=== PATIENT | female | born 1995 | race Hispanic/Latino ===

== ENCOUNTER 2018-05-18 05:17 | Inpatient (IN) | payer OTHER, SELFPAY ==
[2018-05-18 05:58] LABS: Urine Bacteria LOADED /HPF (<20); Urine Culture Reflex Order REFLEXED; Urine Mucus LIGHT /HPF (NONE SEEN); Urine RBC NONE SEEN /HPF (NONE SEEN)
[2018-05-18 05:59] LABS: Urine Blood 3+ (NEG); Urine Glucose NEGATIVE (NEG); Urine Protein NEGATIVE (NEG); Urine Specific Gravity 1.025 (1.005-1.030); Urine pH 5.5 (5.0-7.0)
[2018-05-18 06:04] LABS: Absolute Monocytes 1.2 K/uL (0.1-1.3); Absolute Neutrophil 11.6 K/uL (1.8-8.0); Basophils % 0.2 % (0-1.3); Eosinophils % 0.2 % (0-4.4); Hematocrit 38.6 % (36.0-45.0); Lymphocytes % 13.4 % (15.3-44.8); MCH 30.6 pg (27.0-35.0); MCV 88.9 fL (80-100); MPV 9.6 fL (7.6-11.3); RBC Red Blood Cell Count 4.34 M/uL (3.86-4.86)
[2018-05-18] MEDS ORDERED: NA CHLORIDE 0.9% 1,000 ML ONE ×2 (06:10→07:18)
[2018-05-18] MEDS ORDERED: FENTANYL CITR 100 MCG/2 ML ONE (06:10)
[2018-05-18] MEDS ORDERED: ONDANSETRON 4 MG/2 ML VIAL ONE (06:11)
[2018-05-18 06:14] LABS: ALT/SGPT 27 U/L (12-78); AST/SGOT 18 U/L (15-37); Albumin 3.9 g/dL (3.4-5.0); Alkaline Phosphatase 102 U/L (45-117); BUN Blood Urea Nitrogen 10 mg/dL (7-18); Bicarbonate 25 mmol/L (21-32); Bilirubin Direct 0.1 mg/dL (0-0.2); Bilirubin Total 0.4 mg/dL (0.2-1.0); Glucose Level 120 mg/dL (74-106); Lipase 132 U/L (73-393); Potassium 3.8 mmol/L (3.5-5.1); Protein, Total 7.6 g/dL (6.4-8.2); Sodium Level 136 mmol/L (136-145)
[2018-05-18] MEDS ORDERED: METRONIDAZOLE 500mg IVPB 500 MG/100 ML BAG IV ONE (07:18)
[2018-05-18] MEDS ORDERED: CEFTRIAXONE/SWI 1gm 1 GM/10 ML SYR ONE (07:18)
--- NOTE | 2018-05-18 11:09 | ER ---
Nurse's Notes [facility] Name: Geovanna Yuen Age: 22 yrs Sex: Female : 1995 Arrival Date: 05/18/2018 Time: 05:20 Bed 6 Private MD: Diagnosis: Cecal mass Presentation: 05/18 05:27 Presenting complaint: Patient states: ABDOMINAL PAIN MOVING FROM EPIGASTRIC TO RLQ bp SINCE Y/D. Transition of care: patient was not received from another setting of care. Onset of symptoms was May 17, 2018. Risk Assessment: Do you want to hurt yourself or someone else? Patient reports no desire to harm self or others. Initial Sepsis Screen: Does the patient meet any 2 criteria? HR > 90 bpm. Does the patient have a suspected source of infection? No. Patient's initial sepsis screen is negative. Care prior to arrival: None. 05:27 Method Of Arrival: Ambulatory bp 05:27 Acuity: ROBERT 3 bp Triage Assessment: 05:28 General: Appears in no apparent distress. uncomfortable, slender, Behavior is bp cooperative, appropriate for age, anxious. Pain: Complains of pain in right lower quadrant. EENT: No deficits noted. Neuro: Level of Consciousness is awake, alert, obeys commands, Oriented to person, place, time, situation, Appropriate for age. Cardiovascular: Rhythm is sinus tachycardia. Respiratory: Airway is patent Respiratory effort is even, unlabored, Respiratory pattern is regular, symmetrical. GI: Reports lower abdominal pain, diarrhea, Patient currently denies vomiting. : No signs and/or symptoms were reported regarding the genitourinary system. Derm: No deficits noted. Musculoskeletal: Circulation, motion, and sensation intact. Range of motion: intact in all extremities. 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 - Social history:: Smoking status: Patient/guardian denies using tobacco. - Ebola Screening: : Patient negative for fever greater than or equal to 101.5 degrees Fahrenheit, and additional compatible Ebola Virus Disease symptoms Patient denies exposure to infectious person Patient denies travel to an Ebola-affected area in the 21 days before illness onset No symptoms or risks identified at this time. - Family history:: not pertinent. Screenin:48 Abuse screen: Denies threats or abuse. Denies injuries from another. Nutritional bp screening: No deficits noted. Tuberculosis screening: No symptoms or risk factors identified. Fall Risk None identified. Assessment: 05:48 General: Appears in no apparent distress. uncomfortable, Behavior is calm, cooperative, bp appropriate for age. Pain: Complains of pain in right lower quadrant. Neuro: Level of Consciousness is awake, alert, obeys commands, Oriented to person, place, time, situation, Appropriate for age. Cardiovascular: No deficits noted. Respiratory: Airway is patent Respiratory effort is even, unlabored, Respiratory pattern is regular, symmetrical. GI: Reports lower abdominal pain, diarrhea. : No signs and/or symptoms were reported regarding the genitourinary system. EENT: No deficits noted. Derm: No deficits noted. Musculoskeletal: Circulation, motion, and sensation intact. Range of motion: intact in all extremities. 06:01 Reassessment: PO CONTRAST COMPLETE, CT NOTIFIED. bp 07:02 Reassessment: Patient and/or family updated on plan of care and expected duration. Pain aa5 level reassessed. Patient states feeling better. Awaiting CT at this time. Pt notified of wait time for CT scan to be completed, pt verbalized understanding. . General: Appears comfortable, Behavior is calm, cooperative. Pain: Complains of pain in epigastric area Pain radiates to right lower quadrant Pain currently is 4 out of 10 on a pain scale. Quality of pain is described as dull, Pain began Is continuous. Neuro: Level of Consciousness is awake, alert, obeys commands, Oriented to person, place, time, situation. Cardiovascular: Heart tones S1 S2 present Rhythm is regular. Respiratory: Airway is patent Respiratory effort is even, unlabored, Respiratory pattern is regular, symmetrical, Breath sounds are clear bilaterally. GI: Abdomen is round non-distended, Bowel sounds present X 4 quads. Abd is soft and non tender X 4 quads. Reports diarrhea, Patient currently denies nausea, vomiting. : Reports urinary frequency, Denies burning with urination. EENT: No signs and/or symptoms were reported regarding the EENT system. Derm: Skin is pink, warm \T\ dry. Musculoskeletal: Range of motion: intact in all extremities. 07:20 Reassessment: Patient and/or family updated on plan of care and expected duration. Pain aa5 level reassessed. Patient is alert, oriented x 3, equal unlabored respirations, skin warm/dry/pink. Pain: Pain currently is 4 out of 10 on a pain scale. 10:36 Reassessment: Patient is alert, oriented x 3, equal unlabored respirations, skin aa5 warm/dry/pink. 10:36 Reassessment: See pt's chart for paper charting before 1036. . aa5 Vital Signs: 05:28 BP 108 / 70; Pulse 105; Resp 16; Temp 98.8; Pulse Ox 100% ; Weight 69.85 kg; Height 5 bp ft. 4 in. (162.56 cm); 06:30 BP 101 / 61; Pulse 68; Resp 14; Pulse Ox 100% ; bp 10:36 BP 100 / 60; Pulse 66; Resp 16 S; Pulse Ox 99% on R/A; Pain 3/10; aa5 05:28 Body Mass Index 26.43 (69.85 kg, 162.56 cm) bp ED Course: 05:20 Patient arrived in ED. ds1 05:20 Abe Dutton, RN is Primary Nurse. bp 05:27 Triage completed. bp 05:28 Ry Rouse MD is Attending Physician. aniya 05:28 Arm band placed on. bp 05:48 Patient has correct armband on for positive identification. Bed in low position. Call bp light in reach. Side rails up X2. Adult w/ patient. 05:48 Inserted saline lock: 20 gauge in right antecubital area, using aseptic technique. bp Blood collected. 05:56 Oral contrast given. eh 07:14 [facility] Schwab [facility]. jr8 10:35 Brooks Tavares MD is Hospitalizing Provider. aa5 10:36 No provider procedures requiring assistance completed. Patient admitted, IV remains in aa5 place. Administered Medications: 06:11 Drug: fentaNYL (PF) 25 mcg Route: IVP; Site: right antecubital; bp 06:31 Follow up: Response: No adverse reaction; Pain is decreased cc3 06:11 Drug: Zofran 4 mg Route: IVP; Site: right antecubital; bp 06:31 Follow up: Response: No adverse reaction; Nausea is decreased cc3 06:11 Drug: NS 0.9% 1000 ml Route: IV; Rate: 1 bolus; Site: right antecubital; bp 06:56 Follow up: IV Status: Completed infusion; IV Intake: 1000ml bp 07:15 Drug: Rocephin - (cefTRIAXone) 1 grams {Note: administered IVP over 2 mins per pharmacy aa5 protocol at this time. .} Route: IVPB; Infused Over: 30 mins; Site: right antecubital; 07:18 Follow up: Response: No adverse reaction aa5 07:18 Drug: Flagyl 500 mg Volume: 100 ml; Route: IVPB; Rate: 200 ml/hr; Infused Over: 30 aa5 mins; Site: right antecubital; 07:51 Follow up: Response: No adverse reaction; IV Status: Completed infusion aa5 07:18 Drug: NS 0.9% 1000 ml Route: IV; Rate: 125 ml/hr; Site: right antecubital; aa5 10:36 Follow up: IV Status: Infusion continued upon admission aa5 Intake: 06:56 IV: 1000ml; Total: 1000ml. bp Outcome: 10:36 Decision to Hospitalize by Provider. aa5 10:42 Admitted to Med/surg accompanied by tech, family with patient, via stretcher, room 405, aa5 with chart, Report called to MARIO Thomas 10:42 Condition: stable 10:42 Instructed on the need for admit, Demonstrated understanding of instructions. 10:44 Patient left the ED. aa5 Signatures: Ry Rouse MD MD cha Hagler, Ervin eh Sanford, Demi ds1 India Alex, RN RN aa5 Arcenio Schwab PA PA jr8 Abe Dutton RN RN bp Jessica Levine cc3
--- NOTE | 2018-05-18 11:09 | EDPHYS ---
Physician Documentation [facility] Name: Geovanna Yuen Age: 22 yrs Sex: Female : 1995 Arrival Date: 05/18/2018 Time: 05:20 Bed 6 Private MD: ED Physician Ry Rouse HPI: 05/18 06:00 This 22 yrs old Female presents to ER via Ambulatory with complaints of R Side aniya Abd Pain. 06:00 The patient presents with abdominal pain right lower quadrant. Onset: The aniya symptoms/episode began/occurred 2 day(s) ago. The symptoms do not radiate. Associated signs and symptoms: none. The symptoms are described as constant, dull, stabbing. Modifying factors: The symptoms are alleviated by nothing, the symptoms are aggravated by movement, pressure, walking. Severity of pain: At its worst the pain was. The patient has not experienced similar symptoms in the past. 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 - Social history:: Smoking status: Patient/guardian denies using tobacco. - Ebola Screening: : Patient negative for fever greater than or equal to 101.5 degrees Fahrenheit, and additional compatible Ebola Virus Disease symptoms Patient denies exposure to infectious person Patient denies travel to an Ebola-affected area in the 21 days before illness onset No symptoms or risks identified at this time. - Family history:: not pertinent. ROS: 06:00 Constitutional: Negative for fever, chills, and weight loss, Eyes: Negative for injury, aniya pain, redness, and discharge, ENT: Negative for injury, pain, and discharge, Neck: Negative for injury, pain, and swelling, Cardiovascular: Negative for chest pain, palpitations, and edema, Respiratory: Negative for shortness of breath, cough, wheezing, and pleuritic chest pain, Back: Negative for injury and pain, : Negative for injury, bleeding, discharge, and swelling, MS/Extremity: Negative for injury and deformity, Skin: Negative for injury, rash, and discoloration, Neuro: Negative for headache, weakness, numbness, tingling, and seizure, Psych: Negative for depression, anxiety, suicide ideation, homicidal ideation, and hallucinations, Allergy/Immunology: Negative for hives, rash, and allergies, Endocrine: Negative for neck swelling, polydipsia, polyuria, polyphagia, and marked weight changes, Hematologic/Lymphatic: Negative for swollen nodes, abnormal bleeding, and unusual bruising. 06:00 Abdomen/GI: Positive for abdominal pain, nausea, of the right lower quadrant. Exam: 06:00 Constitutional: This is a well developed, well nourished patient who is awake, alert, aniya and in no acute distress. Head/Face: Normocephalic, atraumatic. Eyes: Pupils equal round and reactive to light, extra-ocular motions intact. Lids and lashes normal. Conjunctiva and sclera are non-icteric and not injected. Cornea within normal limits. Periorbital areas with no swelling, redness, or edema. ENT: Nares patent. No nasal discharge, no septal abnormalities noted. Tympanic membranes are normal and external auditory canals are clear. Oropharynx with no redness, swelling, or masses, exudates, or evidence of obstruction, uvula midline. Mucous membranes moist. Neck: Trachea midline, no thyromegaly or masses palpated, and no cervical lymphadenopathy. Supple, full range of motion without nuchal rigidity, or vertebral point tenderness. No Meningismus. Chest/axilla: Normal chest wall appearance and motion. Nontender with no deformity. No lesions are appreciated. Cardiovascular: Regular rate and rhythm with a normal S1 and S2. No gallops, murmurs, or rubs. Normal PMI, no JVD. No pulse deficits. Respiratory: Lungs have equal breath sounds bilaterally, clear to auscultation and percussion. No rales, rhonchi or wheezes noted. No increased work of breathing, no retractions or nasal flaring. Back: No spinal tenderness. No costovertebral tenderness. Full range of motion. Pelvic Exam: Normal external genitalia. Speculum exam with closed cervical os, no discharge or bleeding noted. Bimanual exam with normal adnexa, no adnexal or cervical motion tenderness. Normal uterus. Female : Normal external genitalia. Skin: Warm, dry with normal turgor. Normal color with no rashes, no lesions, and no evidence of cellulitis. MS/ Extremity: Pulses equal, no cyanosis. Neurovascular intact. Full, normal range of motion. Neuro: Awake and alert, GCS 15, oriented to person, place, time, and situation. Cranial nerves II-XII grossly intact. Motor strength 5/5 in all extremities. Sensory grossly intact. Cerebellar exam normal. Normal gait. Psych: Awake, alert, with orientation to person, place and time. Behavior, mood, and affect are within normal limits. 06:00 Abdomen/GI: Inspection: abdomen appears normal, Bowel sounds: normal, Palpation: nontender, Liver: is firm, Hernia: not appreciated. Vital Signs: 05:28 BP 108 / 70; Pulse 105; Resp 16; Temp 98.8; Pulse Ox 100% ; Weight 69.85 kg; Height 5 bp ft. 4 in. (162.56 cm); 06:30 BP 101 / 61; Pulse 68; Resp 14; Pulse Ox 100% ; bp 10:36 BP 100 / 60; Pulse 66; Resp 16 S; Pulse Ox 99% on R/A; Pain 3/10; aa5 05:28 Body Mass Index 26.43 (69.85 kg, 162.56 cm) bp MDM: 05:30 Patient medically screened. aniya 06:03 Data reviewed: vital signs, nurses notes, lab test result(s), radiologic studies, CT aniya scan. 15:11 Data interpreted: Pulse oximetry: on room air is 99 %. Interpretation: normal. jr8 Counseling: I had a detailed discussion with the patient and/or guardian regarding: the historical points, exam findings, and any diagnostic results supporting the discharge/admit diagnosis, lab results, radiology results, the need for further work-up and treatment in the hospital. ED course: Dr. Tavares consulted and Dr. Montalvo Consulted and will see patient . 05/18 05:31 Order name: Basic Metabolic Panel; Complete Time: 07:04 bp 05/18 05:31 Order name: CBC with Diff; Complete Time: 07:04 bp 05/18 05:31 Order name: Creatinine for Radiology; Complete Time: 07:04 bp 05/18 05:31 Order name: Hepatic Function; Complete Time: 07:04 bp 05/18 05:31 Order name: Lipase; Complete Time: 07:04 bp 05/18 05:31 Order name: Urine Microscopic Only; Complete Time: 05:59 bp 05/18 05:31 Order name: CT Abd/Pelvis - W/Contrast bp 05/18 05:48 Order name: Urine Dipstick--Ancillary (enter results); Complete Time: 07:04 mw2 05/18 05:48 Order name: Urine --Ancillary (enter results); Complete Time: 07:04 mw2 05/18 05:59 Order name: Urine Culture EDMS 05/18 05:31 Order name: IV Saline Lock; Complete Time: 05:48 bp 05/18 05:31 Order name: Labs collected and sent; Complete Time: 05:48 bp 05/18 05:31 Order name: Urine Dipstick-Ancillary (obtain specimen); Complete Time: 05:46 bp 05/18 05:31 Order name: Urine Test (obtain specimen); Complete Time: 05:46 bp Administered Medications: 06:11 Drug: fentaNYL (PF) 25 mcg Route: IVP; Site: right antecubital; bp 06:31 Follow up: Response: No adverse reaction; Pain is decreased cc3 06:11 Drug: Zofran 4 mg Route: IVP; Site: right antecubital; bp 06:31 Follow up: Response: No adverse reaction; Nausea is decreased cc3 06:11 Drug: NS 0.9% 1000 ml Route: IV; Rate: 1 bolus; Site: right antecubital; bp 06:56 Follow up: IV Status: Completed infusion; IV Intake: 1000ml bp 07:15 Drug: Rocephin - (cefTRIAXone) 1 grams {Note: administered IVP over 2 mins per pharmacy aa5 protocol at this time. .} Route: IVPB; Infused Over: 30 mins; Site: right antecubital; 07:18 Follow up: Response: No adverse reaction aa5 07:18 Drug: Flagyl 500 mg Volume: 100 ml; Route: IVPB; Rate: 200 ml/hr; Infused Over: 30 aa5 mins; Site: right antecubital; 07:51 Follow up: Response: No adverse reaction; IV Status: Completed infusion aa5 07:18 Drug: NS 0.9% 1000 ml Route: IV; Rate: 125 ml/hr; Site: right antecubital; aa5 10:36 Follow up: IV Status: Infusion continued upon admission aa5 Disposition: 05/19 07:07 Co-signature as Attending Physician, Ry Rouse MD I agree with the assessment and aniya plan of care. Disposition: 05/18/18 10:36 Hospitalization ordered by Brooks Tavares for Inpatient Admission. Preliminary diagnosis is Cecal mass . - Bed requested for Telemetry/MedSurg (Inpatient). - Status is Inpatient Admission. aa5 - Condition is Stable. - Problem is new. UTI on Admission? Yes Signatures: Dispatcher [employer] EDRy Cruz MD MD cha Calderon, Audri RN RN aa5 Arcenio Schwab PA PA jr8 Abe Dutton RN RN bp Jessica Leivne cc3 Corrections: (The following items were deleted from the chart) 05/18 10:44 10:36 Hospitalization Ordered by Brooks Tavares MD for Inpatient Admission. Preliminary aa5 diagnosis is Cecal mass . Bed requested for Telemetry/MedSurg (Inpatient). Status is Inpatient Admission. Condition is Stable. Problem is new. UTI on Admission? Yes. aa5
--- NOTE | 2018-05-18 11:48 | RAD REPORT ---
EXAM DESCRIPTION: CT - Abdomen Pelvis W Contrast - 05/18/2018 9:27 am CLINICAL HISTORY: Right lower quadrant pain, diarrhea Due to hospital wide power failure, of the PACs and medication tech systems were nonfunctional. Images were reviewed at the CT scanner workstation in communicated to the internet sales consultant surgeon an the [facility]am. COMPARISON: None. TECHNIQUE: Biphasic, helical CT imaging of the abdomen and pelvis was performed following 100 ml non -ionic IV contrast. Oral contrast was given. All CT scans are performed using dose optimization technique as appropriate and may include automated exposure control or mA/KV adjustment according to patient size. FINDINGS: No suspicious findings in the lung bases. The liver, spleen, and pancreas show no suspicious findings. Gallbladder and biliary tree are also wi thout suspicious finding. Symmetric renal function is seen with no hydronephrosis or suspicious renal mass. No pyelonephritis o r acute renal parenchymal process. Urinary bladder is normal. No uterine abnormality seen. Right ovary within normal limits for age. Left ovary is enlarged and pro bably contains a 3.5 centimeter x 2.5 centimeter cyst. No fallopian tube dilatation. There is a physi ologic quantity of free fluid in the cul-de-sac. No gastric dilatation or gastric wall thickening. Small bowel is normal except for the distal few cm of the terminal ileum at the ileocecal valve where there is mild circumferential wall thickening. The cecum is grossly abnormal. There is lobulated masslike thickening. There is congestion and edema in the adjacent fat. There are several lymph nodes in the right lower quadrant. The appendix appears to be a normal size structure uninvolved by the cecum process. Likelihood of acute appendicitis is felt to be very low. Distal to the ileocecal valve there is a moderately large stool volume. No acute colon process outsid e of the cecum finding. Cecum malignancy is a primary consideration even in the setting of a young patient age. This would be unusual. An unusual presentation of an infectious/ inflammatory process would be a consideration. No history to indicate inflammatory bowel disease in this patient. Appendiceal carcinoma is unlikely un less it involved only the base and invaded into the cecum. No free air or pneumatosis. Oral CT contrast is passing through the ileocecal valve into the ascendin g colon. No extravasation of oral contrast. Patient has a small 15 millimeter umbilical fat only her kimberly. No inguinal hernia. No suspicious bony findings. IMPRESSION: Pronounced lobulation and thickening of the tip of the cecum with involvement of the ile ocecal valve and the distal 2 cm of the ileocecal valve. The appendix does not appear to be involved. Trace amount of free fluid in the cul-de-sac which is physiologic in quantity. No free air, abscess, extravasation or other surgically emergent finding. The finding in the cecum is unusual for a patient this age. Malignancy of the cecum is a differential consideration even at this young age. An unusual presentation of an infectious/ inflammatory process would also be a consideration. No omental thickening, bulky lymphadenopathy, liver lesion or other finding to elevate probability of a distant metastatic disease. Patient has multiple right lower quadrant mesenteric lymph nodes.
[2018-05-18] MEDS ORDERED: BISACODYL E.C. 5 MG TAB PO ONE (12:09)
[2018-05-18 12:13] VITALS: BMI 26.4
[2018-05-18] MEDS ORDERED: GOLYTELY 4000 ML PO SCH (13:00)
[2018-05-18] MEDS ORDERED: GOLYTELY 4000 ML PO ONE (15:00)
[2018-05-18] MEDS ORDERED: MORPHINE 4 MG/ML SYR IV PRN (15:05)
[2018-05-18] MEDS ORDERED: ONDANSETRON 4 MG/2 ML VIAL IV PRN (15:05)
[2018-05-18] MEDS: NA CHLORIDE 0.9% 1,000 ML IV SCH (17:38)
[2018-05-18] MEDS ORDERED: CEFTRIAXONE/SWI 1gm 1 GM/10 ML SYR IV SCH (21:00)
--- NOTE | 2018-05-18 21:48 | HP ---
Date of Admission: 05/18/2018 Chief Complaint: Abdominal pain. History Of Present Illness: The patient is a 22-year-old female, who had diffuse abdominal pain loca lizing to the right lower quadrant, associated with nausea. No vomiting, no diarrhea, or constipatio n. The pain has been there for couple of days. No family history of colorectal malignancy or inflam matory bowel disease. No dysuria or hematuria. No sore throat, runny nose, cough, headaches, or diz ziness. Some chest discomfort when all the symptoms began, but no fever or chills. Review of Systems: Otherwise unremarkable. Past Medical History: Negative. Past Surgical History: Negative. Allergies: NO ALLERGIES. Social History: She does not smoke. Drinks occasionally. Family History: Negative. Physical Examination: Vital Signs: Stable. Afebrile. General: Awake, alert, and oriented x3. Head and Neck: Cranial nerves 2 through 12 grossly within normal limits. No neck masses. No JVD. Throat clear. Neck is supple. Chest: Clear. Heart: S1, S2. Abdomen: Soft. Positive Rovsing sign. Positive right lower quadrant tenderness. Minimal rebound. No rigidity or guarding. Extremities: Adequately perfused. Nontender. Neuro: Nonfocal. Laboratory Data: The patient has slight leukocytosis. CT of the abdomen and pelvis reviewed with Dr Marisol Dickey. She has cecal mass. Appendix appears to be normal. Etiology of mass is unclear, could b e inflammatory or malignancy. Assessment: Abdominal pain, cecal mass. Recommendations: The patient will be admitted to the Surgery Service, kept n.p.o., IV fluid, IV anti biotic, get a bowel prep, and GI consultation for colonoscopy. Following which, the patient needs nelson rgical intervention. I will make that decision based on the findings of the colonoscopy. Plan of ca re discussed in detail with the patient. KEIRA/RENEE Voice ID: [id number]
[2018-05-18] MEDS: METRONIDAZOLE 500mg IVPB 500 MG/100 ML BAG IV SCH (23:56)
[2018-05-19] MEDS: NA CHLORIDE 0.9% 1,000 ML IV SCH ×3 (02:50→16:19)
[2018-05-19 04:06] LABS: Absolute Lymphocytes (CBC) 1.9 K/uL (0.7-4.9); Absolute Monocytes 0.9 K/uL (0.1-1.3); Absolute Neutrophil 7.1 K/uL (1.8-8.0); Basophils % 0.6 % (0-1.3); Eosinophils % 0.7 % (0-4.4); Hematocrit 32.1 % (36.0-45.0); Lymphocytes % 18.7 % (15.3-44.8); MCV 90.1 fL (80-100); MPV 9.7 fL (7.6-11.3); Monocytes % 9.1 % (3.3-12.3); RBC Red Blood Cell Count 3.56 M/uL (3.86-4.86)
[2018-05-19 04:32] LABS: BUN Blood Urea Nitrogen 6 mg/dL (7-18); Bicarbonate 24 mmol/L (21-32); Glucose Level 95 mg/dL (74-106); Potassium 3.6 mmol/L (3.5-5.1); Sodium Level 140 mmol/L (136-145)
[2018-05-19] MEDS: METRONIDAZOLE 500mg IVPB 500 MG/100 ML BAG IV SCH ×4 (05:37→23:50)
[2018-05-19] MEDS ORDERED: PROPOFOL 200 MG/20 ML VIAL IV ONE ×2 (07:08)
[2018-05-19] MEDS ORDERED: LIDOCAINE 1% MPF 2 ML AMPULE ONE (07:08)
[2018-05-19] MEDS ORDERED: MIDAZOLAM HCL 2 MG/2 ML INJ ONE (07:13)
[2018-05-19] MEDS ORDERED: NA CHLORIDE 0.9% 1,000 ML ONE (07:37)
[2018-05-19] MEDS: PIPER/TAZO/NS 3.375gm 3.375 GM/100 ML BAG IVPB SCH ×2 (09:09→16:19)
--- NOTE | 2018-05-19 14:01 | PN ---
Date of Progress Note: 05/19/2018 Subjective: The patient had a colonoscopy. Dr. Montalvo contacted me right after the colonoscopy. The patient does have some inflammatory tissue. We did biopsy, results are pending. The patient fee ls better. She is hungry. Physical Examination: Vital signs: Stable, afebrile. White count is normal. Abdomen: Much less tender. Assessment: Abdominal pain. Etiology most likely inflammatory. Recommendations: We will continue IV antibiotics. Start her on clear liquids. Serial abdominal exa ms and as an outpatient, I will repeat the CAT scan to see if this inflammatory area has improved. I f it has not, then she may require further workup at a tertiary care facility. No need for any acute surgical intervention at this time. KEIRA/RENEE Voice ID: [id number] Report ID: [id number]
--- NOTE | 2018-05-19 18:09 | OP ---
Surgeon: Trenton Montalvo MD Procedure To Be Performed: Colonoscopy. Performing Physician: Trenton Montalvo MD. Indication For Procedure: Cecal mass, suspicion of malignancy on CT. Plan For Anesthesia: Monitored anesthesia care. Complexity: High due to just being the nature of the procedure. There was increased chance of compl ications like perforation given the ambiguity of the diagnosis. This was explained to the patient al so beforehand. The risks and complications including bleeding, infection, anesthesia complications w ere explained. She understands and agrees. Technique: Sedation was given and then a digital rectal exam was performed from then on. Subsequent ly, the scope was advanced into the rectum and carefully guided up till the terminal ileum. Afterwar ds, the scope was gradually withdrawn while carefully examining the mucosa. Quality of prep was fair . Scope withdrawal time was 7 minutes. Findings: The rectum, small linear ulcer was seen in the rectum. The biopsies were taken. In the c ecum, the ileocecal valve appeared normal. However, exactly opposite to the IC valve, some erythema was seen. On a little more detailed inspection, an ulcer was visualized. Biopsies were taken from t his region. This does not appear to be colonic mass. Infectious, inflammatory versus neoplastic inv asion from the external viscera all the possibilities. Several biopsies were taken. Terminal ileum was intubated. The ileal mucosa appeared to have hypertrophied lymphoid follicles. Biopsies were ta elvia. Complications: None. Tolerance To Anesthesia: Excellent. Postoperative Diagnoses: Ulceration and inflammation in the cecum without any definitive mass, statu s post biopsies. Small rectal ulcer. Normal remainder of the colon. Plan: 1.Await pathology results. 2.I have discussed the case with Dr. Tavares. We will treat her with antibiotics and see how she respo nds. Also, we will follow biopsy reports based. On the findings and pathology, we will decide the f urther plan of care. Dr. Tavares is deliberate at thinking of possibility of infectious etiology like cecal diverticulitis as well as inflammatory etiology. If it turns out to be neoplastic, surgical in tervention will be required. If there is no diagnosis, may be laparoscopic exam would be needed. We will see what the biopsies show. US/MODL Voice ID: [id number] Report ID: [id number]
--- NOTE | 2018-05-19 19:34 | CON ---
Reason For Consultation: Cecal/colonic mass. History Of Presenting Illness: The patient is a 22-year-old woman with no prior medical history, cam e to the ER with complaints of severe right lower quadrant pain of 1 day. Imaging revealed finding o f mass lesion in the cecal area extending into the IC valve and the ileum. GI consultation was reque sted. The patient denies any prior history. She says that her pain was a little better when I saw h er. Past Medical History: None. Past Surgical History: None. Allergies: NO KNOWN DRUG ALLERGIES. Social History: Denies any toxic habits. Family History: Noncontributory. Physical Examination: Vital Signs: She is afebrile, not tachycardic, not tachypneic, normotensive. HEENT: Head atraumatic, normocephalic. Pupils equally reactive. Neck: Supple. Chest: Clear to auscultation bilaterally. Abdomen: Soft, but there is tenderness in the right lower quadrant as well as complains of right-shyam ed pain with left lower quadrant palpation. Laboratory Data: Reviewed. She does have leukocytosis, but there is also evidence of UTI. Dr. Raúl mascorro and Dr. Dickey both reviewed the images and concur that this does not appear to be an abscess or a perforation finding, however, but could actually be a neoplastic process versus an inflammatory mass . Therefore, further investigation is recommended. Assessment: A 22-year-old woman with right lower quadrant pain and a mass in the cecum. Differentia l includes, inflammatory related to inflammatory bowel disease versus neoplastic versus infectious. Plan: We will go ahead and schedule her for a colonoscopy. The risks and complications which includ e, but are not limited to bleeding, infection, perforation, anesthesia complications were discussed. She understands and agrees. Based on colonoscopy finding, we will decide on further plan of care. US/MODL Voice ID: [id number] Report ID: [id number]
[2018-05-20] MEDS: PIPER/TAZO/NS 3.375gm 3.375 GM/100 ML BAG IVPB SCH ×2 (00:48→09:17)
[2018-05-20 05:10] LABS: Absolute Lymphocytes (CBC) 2.4 K/uL (0.7-4.9); Absolute Monocytes 0.6 K/uL (0.1-1.3); Absolute Neutrophil 4.1 K/uL (1.8-8.0); Basophils % 0.5 % (0-1.3); Eosinophils % 2.8 % (0-4.4); Hematocrit 31.6 % (36.0-45.0); Lymphocytes % 32.7 % (15.3-44.8); MCH 30.8 pg (27.0-35.0); MCV 88.6 fL (80-100); MPV 9.3 fL (7.6-11.3); Monocytes % 8.2 % (3.3-12.3); RBC Red Blood Cell Count 3.56 M/uL (3.86-4.86)
[2018-05-20 05:26] LABS: BUN Blood Urea Nitrogen 3 mg/dL (7-18); Bicarbonate 24 mmol/L (21-32); Glucose Level 94 mg/dL (74-106); Phosphorus 2.8 mg/dL (2.5-4.9); Potassium 3.6 mmol/L (3.5-5.1); Sodium Level 141 mmol/L (136-145)
[2018-05-20] MEDS: METRONIDAZOLE 500mg IVPB 500 MG/100 ML BAG IV SCH ×2 (06:02→12:28)
[2018-05-20] MEDS: NA CHLORIDE 0.9% 1,000 ML IV SCH (09:17)
[2018-05-20 10:11] VITALS: O2SAT 99
--- NOTE | 2018-05-20 11:35 | DS ---
Date of Discharge: 05/20/2018 Admitting Diagnoses: Abdominal pain, cecal mass. Discharge Diagnoses: Abdominal pain, cecal mass, likely cecal diverticulitis. Hospital Course: The patient is a 22-year-old female, who was admitted with a 2-day history of abdom inal pain. Workup revealed a cecal mass. GI consultation was obtained. A colonoscopy was done. Pr eliminary biopsy results from the cecum revealed ulceration, some inflammation, but no evidence of ma lignancy, suspicious for either cecal diverticulitis or some other inflammatory process. Potentially could be Crohn's or ulcerative colitis. The patient, however, improved markedly with leukocytosis n ormalized. Pain on tolerating clear liquids. Afebrile. Ambulating. White count is normal. Theref ore, the patient will be discharged to home. Workup will be continued as an outpatient. Disposition: Home. Condition: Stable. Discharge Instructions: Resume home medications and diet. We will give the patient a full liquid, i f she tolerates that she can go home and she can advance to low-fiber as tolerated. I will see her i n the office in the office in 2 weeks. We will keep her on Cipro and Flagyl at home. We will re-felpie luate her with a followup CT scan in 3-4 weeks. Should there be resolution, no further workup needs to be done. However, if there was not, we may need a followup with GI service. The patient does not require any acute surgical intervention at this time. KEIRA/RENEE Voice ID: [id number] Report ID: [id number]
[2018-05-20 13:46] VITALS: BP 94/52; TEMP 97.8
== END 2018-05-20 14:28 | disposition home or self-care (01) | DRG 386 ==
LOC: ER 05:17 → 4TH 08:55
PROVIDERS: ADMIT Surgery; ATTEND Surgery
PROC: 0DBP8ZX Excision of Rectum, Via Natural or Artificial Opening Endoscopic, Diagnostic (ICD-10-PCS; 2018-05-19)
PROC: 0DBB8ZX Excision of Ileum, Via Natural or Artificial Opening Endoscopic, Diagnostic (ICD-10-PCS; 2018-05-19)
PROC: 0DBH8ZX Excision of Cecum, Via Natural or Artificial Opening Endoscopic, Diagnostic (ICD-10-PCS; principal; 2018-05-19 07:00)
DX: K51.814 Other ulcerative colitis with abscess (principal)
CPT/HCPCS: 36415; 74177; 80048; 80076; 81003; 81015; 81025; 83690; 83735; 84100; 85025; 87077; 87086; 87088; 87186; 88305; 96361; 96365; 96375; 99285; J0696; J2001; J2250; J2405; J2543; J3010; J7030; Q9967